=== PATIENT | male | born 1955 | race Caucasian/White ===

== ENCOUNTER 2021-09-21 08:08 | Emergency (ER) | payer OTHER ==
--- OUTSIDE RECORDS SUMMARY | 2021-09-21 08:12 | XMS REPORT | Continuity of Care Document ---
:1955 Author Organization [facility] t Address [address] [place] [address] [address]. [address] [place] [address] Care Team Providers Name Role Phone FRANCIS SAGE Attending Clinician Unavailable FRANCIS SAGE Admitting Clinician Unavailable Payers Payer Name Policy Type Policy Number Effective Date Expiration Date S lisa [facility] [id number] 2018 2020 RESOURCES 00:00:00 00:00:00 Problems This patient has no known problems. Allergies, Adverse Reactions, Alerts Allergy Allergy Status Severity Reaction(s) Onset Inactive Treating Comm ents Source Name Type Date Date Clinician NO KNOWN Allergy Active [facility] Medications This patient has no known medications. Vital Signs Vital Name Observation Time Observation Value Comments Source HEIGHT 2020-06-21 13:00:00 160 cm WEIGHT 2020-06-21 13:00:00 75.751 kg HEIGHT 2020-06-21 13:00:00 160 cm WEIGHT 2020-06-21 13:00:00 75.751 kg Procedures This patient has no known procedures. Encounters Start End Encounter Admission Attending Care Care Encounter Source Date/Time Date/Time Type Type Clinicians Facility Department ID 2020-06-21 Inpatient ER [facility] [id number] [facility] 12:27:00 [facility] Med 2020-07-25 2020-07-25 Outpatient [facility] [id number] [facility] 00:00:00 00:00:00 Results Test Description Test Time Test Comments Results Result [facility] e Comments MR, SPINE, 2020-07-25 Unlisted Reason LUMBAR, WITHOUT 12:01:00 for Exam - Click CONTRAST Yes and Enter [facility] Reason [facility] Below->YesUnlist CENTERName: becca MCNALLY Reason for TEREZA EDWARDS Exam->RADICULOPA : 1955 THY LUMBOSACRAL Sex: M FINAL REPORT MR, SPINE, LUMBAR, WITHOUT CONTRAST INDICATION: Unlisted Reason for ExamRADICULOPATHY LUMBOSACRAL COMPARISON: None TECHNIQUE: Multiplanar, multisequence MR images of the lumbar spine without contrast. FINDINGS: 5 nonrib-bearing lumbar-type vertebral bodies are present. Alignment of the lumbar spine is within normal limits. Vertebral body height is maintained. Multilevel disc space height loss is present, most conspicuous at L4-L5 and L5-F4Sicjx terminates at L1.Cauda equina demonstrates normal appearance.No acute findings in the paraspinal soft tissues. Evaluation of the individual levels demonstrates: L1/L2: No significant canal or foraminal narrowing.L2/L3: No significant canal or foraminal narrowing.L3/L4: Mild disc bulge. No significant canal or foraminal stenosis.L4/L5: Mild disc bulge. Small bilateral facet effusions. Mild right facet arthropathy. Mild right foraminal stenosis. No significant spinal canal narrowing.L5/S1: Mild disc bulge. Bilateral facet arthropathy and hypertrophy. Moderate bilateral foraminal stenosis. No significant spinal canal narrowing. IMPRESSION: Multilevel degenerative changes of the lumbar spine, most prominent at L4-L5 and L5-S1 as per above . Signed: Cheryl Salazar MDReport Verified Date/Time: 07/25/2020 12:01:58 Reading Location: [facility] [id number] Neuro Reading Room D PANEL 2020-06-22 15:40:00 Test Item Value Reference Range Interpretation Comme nts TRIGLYCERIDES (BEAKER) (test code = 540) 251 mg/dL CHOLESTEROL (CRISELDA) (test code = 631) 244 mg/dL HDL CHOLESTEROL (STEPHANIEAKER) (test code = 976) 47 mg/dL LDL CHOLESTEROL CALCULATED (CRISELDA) (test code = 633) 147 mg/dL Triglyceride Reference Range: Low Risk <150 Borderline 150-199 High Risk 200-499 Very High Risk >=500Cholesterol Reference Range: Low Risk <200 Borderline 200-239 High Risk >240HDL Cholesterol Reference Range: Low Risk >=60 High Risk <40LDL Cholesterol Reference Range: Optimal <100 Near Optimal 100-129 Borderline 130-159 High 160-189 Very High >=190 Mineral Technologist ID - VANANHOperator ID - VANANHOperator ID - VANANHOperator ID - VANANHOperator ID - VANANHOperator ID - VANANHHEMOGLOBIN [id number] 15:31:00 Test Item Value Reference Range Interpretation Comments HEMOGLOBIN A1C (CRISELDA) (test code = 5.1 % 4.3-6.1 368) Mineral Technologist ID - SWETHAANHCT, CAROTID, [id number] 12:42:00Unlisted Reason for Exam - Click Yes and Enter Reason Below->No [facility] 1955 Sex: MFINAL REPORT CT, CAROTID, ANGIO, CT, CTANGIO BRAINBRAIN CT WITHOUT CONTRAST INDICATION: Neuro deficit, acute, stroke suspected COMPARISON: CT head of the same date TECHNIQUE:Rapid acquisition spiral images were obtained between the aortic arch and the cranial vertex during intravenous contrast infusion to reconstruct axial images and angiographic 3D maximum intensity projections (MIP). 3-D volumetric reformatted images were created at a dedicated workstation. Precontrast images of the brain were also obtained. Stenosis evaluation reported in compliance with NASCET criteria. DOSE REDUCTION: Dose modulation, iterative reconstruction, and/or weight-based adjustment of the mA/kV was utilized to reduce the radiation dose to as low as reasonably achievable. FINDINGS:NECT BRAIN:No intracranial hemorrhage, midline shift or mass effect. Midline structures are normally developed. Mild chronic microvascular ischemic changes of the periventricular and subcortical white matterare present. No hydrocephalus. Orbits are within normal limits. No obstructive paranasal sinus disease. CTA BRAIN:Internal carotid arteries: Petrous, cavernous and supraclinoid portions patent. Middlecerebral arteries: Bilateral MCA M1-M2 branches demonstrate normal contrast enhancement.Anterior cerebral arteries: Bilateral AMARILYS A1-A2 branches demonstrate normal contrast enhancement.Basilar system: Normal contrast opacification of the vertebrobasilar system.Posterior cerebral arteries: Normal contrast opacification of the bilateral NETWORK STRATEGIST P1-P2 branches.Venous opacification: Major dural sinuses unrema rkable for bolus timing.Additional findings: None. CTA NECK:Common carotid arteries: There is normalcontrast opacification of the bilateral common carotid arteries.Cervical internal carotid arteries: Normal contrast opacification of the bilateral cervical internal carotid arteries without significantstenosis by NASCET criteria.Vertebral arteries: Normal contrast opacification of the bilateral cervical vertebral arteries.Arch anatomy: Conventional. Nonvascular findings:No acute findings within the neck soft tissues. IMPRESSION: No acute intracranial abnormality. Unremarkable CTA of the head and neck. Signed: Cheryl Salazar MDReport Verified Date/Time: 06/22/2020 12:42:49 Reading Location: [address] Neuro Reading Room [facility] [id number] 12:42:00Unlisted Reason for Exam - Click Yes and Enter Reason Below->No [facility] : 1955 Sex: MFINAL REPORT CT, CAROTID, ANGIO, CT, CTANGIO BRAINBRAIN CT WITHOUT CONTRAST INDICATION: Neuro deficit, acute, stroke suspected COMPARISON: CT head of the same date TECHNIQUE:Rapid acquisition spiral images were obtained between the aortic arch and the cranial vertex during intravenous contrast infusion to reconstruct axial images and angiographic 3D maximum intensity projections (MIP). 3-D volumetric reformatted images were created at a dedicated workstation. Precontrast images of the brain were also obtained. Stenosis evaluation reported in compliance with NASCET criteria. DOSE REDUCTION: Dose modulation, iterative reconstruction, and/or weight-based adjustment of the mA/kV was utilized to reduce the radiation dose to as low as reasonably achievable. FINDINGS:NECT BRAIN:No intracranial hemorrhage, midline shift or mass effect. Midline structures are normally developed. Mild chronic microvascular ischemic changes of the periventricular and subcortical white matterare present. No hydrocephalus. Orbits are within normal limits. No obstructive paranasal sinus disease. CTA BRAIN:Internal carotid arteries: Petrous, cavernous and supraclinoid portions patent. Middlecerebral arteries: Bilateral MCA M1-M2 branches demonstrate normal contrast enhancement.Anterior cerebral arteries: Bilateral AMARILYS A1-A2 branches demonstrate normal contrast enhancement.Basilar system: Normal contrast opacification of the vertebrobasilar system.Posterior cerebral arteries: Normal contrast opacification of the bilateral NETWORK STRATEGIST P1-P2 branches.Venous opacification: Major dural sinuses unrema rkable for bolus timing.Additional findings: None. CTA NECK:Common carotid arteries: There is normalcontrast opacification of the bilateral common carotid arteries.Cervical internal carotid arteries: Normal contrast opacification of the bilateral cervical internal carotid arteries without significantstenosis by NASCET criteria.Vertebral arteries: Normal contrast opacification of the bilateral cervical vertebral arteries.Arch anatomy: Conventional. Nonvascular findings:No acute findings within the neck soft tissues. IMPRESSION: No acute intracranial abnormality. Unremarkable CTA of the head and neck. Signed: Cheryl Salazarort Verified Date/Time: 06/22/2020 12:42:49 Reading Location: [facility] C0[facility] Neuro Reading Room MR, BRAIN, WITHOUT CONTRAST 2020-06-22 10:43:00Unlisted Reason for Exam - Click Yes and Enter Reason Below- >NoDeos the patient have an implantedelectronic device?->No [facility] : 1955 Sex: MFINAL REPORT MR, BRAIN, WITHOUT CONTRAST INDICATION: Altered mental status TECHNIQUE: Multiplanar, multisequence MR imaging of the brain was obtained. 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 No hemorrhagic conversion or significant mass effect. Brain parenchyma is normal in morphology. Midline structures are normally developed. No abnormal susceptibility. Scattered T2/FLAIR hyperintense foci within the periventricular and subcortical white matter are nonspecific, however, statistically represent chronic microvascular ischemic changes. No hydrocephalus. Orbits are within normal limits. No obstructive paranasal sinus disease. 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 No hemorrhagic conversion or significant mass effect. Signed: Cheryl Salazar MDReport Verified Date/Time: 06/22/2020 10:43:15 Reading Location: [address] Neuro Reading Room COMPREHENSIVE METABOLIC [id number] 14:56:00 Test Item Value Reference Range Interpretation Comments TOTAL PROTEIN 7.4 gm/dL 6.0-8.5 (BEAKER) (test code = 770) ALBUMIN (BEAKER) 4.4 g/dL 3.5-5.0 (test code = 1145) ALKALINE PHOSPHATASE 80 U/L 30-115 (BEAKER) (test code = 346) BILIRUBIN TOTAL 0.7 mg/dL 0.1-1.2 (BEAKER) (test code = 377) SODIUM (BEAKER) (test 141 meq/L 135-148 code = 381) POTASSIUM (BEAKER) 3.9 meq/L 3.6-5.5 (test code = 379) CHLORIDE (BEAKER) 106 meq/L 98-106 (test code = 382) CO2 (BEAKER) (test 19 meq/L 20-29 L code = 355) BLOOD UREA NITROGEN 10 mg/dL 10-26 (BEAKER) (test code = 354) CREATININE (BEAKER) 0.92 mg/dL 0.50-1.20 (test code = 358) GLUCOSE RANDOM 94 mg/dL 70-110 (BEAKER) (test code = 652) CALCIUM (BEAKER) 8.8 mg/dL 8.5-10.5 (test code = 697) AST (SGOT) (BEAKER) 27 U/L 5-40 (test code = 353) ALT (SGPT) (BEAKER) 36 U/L 5-50 (test code = 347) EGFR (BEAKER) (test INSUFFIC IENT CLINICAL code = 1092) DATA TO CALCULA TE ESTIMATED GFR. Mineral Technologist ID - [id number] ID - [id number] ID - [id number] ID - [id number] ID - [id number] ID - [id number] ID - [id number] ID - [id number] ID - [id number] ID - [id number] ID - [id number] ID - jonh69Cogvtkts ID - rrrx88Gkeiasee ID - [id number] ID - [id number] ID - xmch05Dhncmiap ID - tqfw21Rkplzqwm ID - [id number] ID - [id number] [id number] 14:44:00 Test Item Value Reference Range Interpretation Comments C-REACTIVE PROTEIN (BEAKER) (test 0.54 mg/dL 0.00-0.50 H code = 676) Mineral Technologist ID - [id number] 14:43:00 Test Item Value Reference Range Interpretation Comments VITAMIN B12 (BEAKER) (test code = 195 pg/mL 211-911 L 774) Mineral Technologist ID - [id number]/FREE T4 IF [id number] 14:31:00 Test Item Value Reference Range Interpretation Comments THYROID STIMULATING HORMONE 1.030 uIU/mL 0.350-5.500 (BEAKER) (test code = 772) Mineral Technologist ID - [id number]/RT-PCR (HS & REF LABS)2020-06-21 13:54:00 Test Item Value Reference Range Interpretation Comments SARS-COV2/RT-PCR (test Negative Not Detected, code = 4526217) Negative, See external report for linked test SARS-COV-2 PERFORMING [facility] (test code = [facility] - [place] [id number]) [facility] [id number] 13:43:00 Test Item Value Reference Range Interpretation Comments AMMONIA (BEAKER) (test code = 348) 45 mol/L 17-80 Mineral Technologist ID - [id number] ID - [id number] ID - [id number] ID - [id number] CBC W/PLT COUNT & AUTO [id number] 13:33:00 Test Item Value Reference Range Interpretation Comments WHITE BLOOD CELL COUNT (BEAKER) 10.0 K/ L 4.0-10.0 (test code = 775) RED BLOOD CELL COUNT (BEAKER) 4.88 M/ L 4.20-5.80 (test code = 761) HEMOGLOBIN (BEAKER) (test code = 15.9 GM/DL 13.0-16.8 410) HEMATOCRIT (BEAKER) (test code = 45.6 % 36.0-50.0 411) MEAN CORPUSCULAR VOLUME (BEAKER) 93.4 fL 82.0-99.0 (test code = 753) MEAN CORPUSCULAR HEMOGLOBIN 32.6 pg 27.0-33.0 (BEAKER) (test code = 751) MEAN CORPUSCULAR HEMOGLOBIN CONC 34.9 GM/DL 32.0-36.0 (BEAKER) (test code = 752) RED CELL DISTRIBUTION WIDTH 13.2 % 12.0-15.0 (BEAKER) (test code = 412) PLATELET COUNT (BEAKER) (test 313 K/CU MM 150-430 code = 756) MEAN PLATELET VOLUME (BEAKER) 9.6 fL 6.0-11.5 (test code = 754) NUCLEATED RED BLOOD CELLS 0 /100 WBC 0-0 (BEAKER) (test code = 413) NEUTROPHILS RELATIVE PERCENT 73 % (BEAKER) (test code = 429) LYMPHOCYTES RELATIVE PERCENT 20 % (BEAKER) (test code = 430) MONOCYTES RELATIVE PERCENT 6 % (BEAKER) (test code = 431) EOSINOPHILS RELATIVE PERCENT 1 % (BEAKER) (test code = 432) BASOPHILS RELATIVE PERCENT 1 % (BEAKER) (test code = 437) NEUTROPHILS ABSOLUTE COUNT 7.29 K/ L 1.80-8.00 (BEAKER) (test code = 670) LYMPHOCYTES ABSOLUTE COUNT 1.98 K/ L 1.48-4.50 (BEAKER) (test code = 414) MONOCYTES ABSOLUTE COUNT (BEAKER) 0.56 K/ L 0.00-1.30 (test code = 415) EOSINOPHILS ABSOLUTE COUNT 0.09 K/ L 0.00-0.50 (BEAKER) (test code = 416) BASOPHILS ABSOLUTE COUNT (BEAKER) 0.07 K/ L 0.00-0.20 (test code = 417) IMMATURE GRANULOCYTES-RELATIVE 1 % 0-0 H PERCENT (BEAKER) (test code = 7972)
[2021-09-21] MEDS ORDERED: CYCLOBENZAPRINE 10 MG TAB ONE (08:46)
[2021-09-21] MEDS ORDERED: LIDOCAINE 4% PATCH ONE (08:47)
[2021-09-21] MEDS ORDERED: HYDROCODONE/APAP 10/325 TAB ONE (08:47)
[2021-09-21] MEDS ORDERED: KETOROLAC 30 MG/ML INJ ONE (08:47)
--- NOTE | 2021-09-21 09:30 | RAD REPORT ---
EXAM DESCRIPTION: RAD - Thoracic Spine Ap/Lat - 09/21/2021 9:18 am CLINICAL HISTORY: PAIN COMPARISON: No comparisons FINDINGS: No acute fracture. Mild thoracolumbar curvature . Mild diffuse disc height loss and minima l endplate spurring. Surgical clips in the right upper quadrant. IMPRESSION: No acute osseous abnormality involving the thoracic spine.
--- NOTE | 2021-09-21 10:10 | ER ---
Nurse's Notes [facility] Name: Ricci Medina Age: 65 yrs Sex: Male : 1955 Arrival Date: 09/21/2021 Time: 08:11 Bed 24 Private MD: Diagnosis: Pain in thoracic spine Presentation: 09/21 08:21 Chief complaint: Patient states: l mid upper back pain starting a couple fo days ago. jh6 no in jury. Coronavirus screen: Vaccine status: Patient reports receiving the 2nd dose of the covid vaccine. Ebola Screen: Patient negative for fever greater than or equal to 101.5 degrees Fahrenheit, and additional compatible Ebola Virus Disease symptoms. Initial Sepsis Screen: Does the patient meet any 2 criteria? No. Patient's initial sepsis screen is negative. Does the patient have a suspected source of infection?. Risk Assessment: Do you want to hurt yourself or someone else? Patient reports no desire to harm self or others. Onset of symptoms was September 01, 2021. 08:21 Method Of Arrival: Ambulatory [facility] 08:21 Acuity: NGUYỄN 4 jh6 Triage Assessment: 08:23 General: Appears uncomfortable, Behavior is calm, cooperative. Pain: Complains of pain jh6 in left subscapular area Pain currently is 8 out of 10 on a pain scale. Quality of pain is described as burning, sharp, Pain began 2-3 days ago. Is continuous, Alleviated by nothing. Aggravated by exercise, increased activity, repositioning. Musculoskeletal: Range of motion: limiting in twisting or moving due to pain. Historical: - Allergies: 08:22 No Known Allergies; [facility] - Immunization history:: Adult Immunizations up to date. - Social history:: Smoking status: Patient denies any tobacco usage or history of. Screenin:25 Abuse screen: Denies threats or abuse. Nutritional screening: No deficits noted. 6 Tuberculosis screening: No symptoms or risk factors identified. Fall Risk Gait- Weak (10 pts.). Assessment: 08:25 General: see triage note. Neuro: No deficits noted. [facility] 09:46 Reassessment: Patient is alert, oriented x 3, equal unlabored respirations, skin jh6 warm/dry/pink. Patient states feeling better. Patient states symptoms have improved. Pain: Pain currently is 4 out of 10 on a pain scale. Neuro: No deficits noted. Vital Signs: 08:21 BP 158 / 100; Pulse 81; Resp 18; Temp 98.2(O); Pulse Ox 98% ; Weight 86.18 kg; Height 5 jh6 ft. 4 in. (162.56 cm); Pain 8/10; 09:47 BP 127 / 83; Pulse 69; Resp 18; Pulse Ox 100% ; jh6 10:31 BP 112 / 64; Pulse 72; Resp 17; Pulse Ox 100% ; Pain 1/10; jh6 08:21 Body Mass Index 32.61 (86.18 kg, 162.56 cm) 6 ED Course: 08:11 Patient arrived in ED. mr 08:14 Lona Ortega, CLEVE is Primary Nurse. jh6 08:18 Mohinder Pena NP is PHCP. pm1 08:18 Ricardo Gomez MD is Attending Physician. pm1 08:22 Triage completed. jh6 08:24 Arm band placed on right wrist. Patient placed in an exam room, on a stretcher. 6 08:26 Call light in reach. Side rails up X 1. jh6 08:26 No provider procedures requiring assistance completed. jh6 09:16 Spine Thoracic Ap/Lat XRAY In Process Unspecified. EDNM Administered Medications: 08:57 Drug: [place] (HYDROcodone-acetaminophen) 10 mg-325 mg 1 tabs Route: PO; jh6 10:32 Follow up: Response: Pain is decreased 6 08:57 Drug: Ketorolac 30 mg Route: IM; Site: left deltoid; jh6 10:32 Follow up: Response: Pain is decreased 6 08:57 Drug: Flexeril (cyclobenzaprine) 10 mg Route: PO; jh6 10:32 Follow up: Response: Pain is decreased 6 08:58 Drug: Lidoderm Patch 5 % (700 mg/patch) 1 patches Route: Topical; Site: affected area; 6 Outcome: 10:09 Discharge ordered by . pm1 10:31 Discharged to home ambulatory. jh6 10:31 Condition: improved 10:31 Discharge instructions given to patient, Instructed on discharge instructions, follow up and referral plans. Demonstrated understanding of instructions, follow-up care, medications, Prescriptions given X 4. 10:32 Patient left the ED. 6 Signatures: Dispatcher [employer] EDNM Radha Elias mr Izabellamonalisa, Mohinder, ANTISQUEAK FILLER ANTISQUEAK FILLER pm1 Shannon, Lona, RN RN jh6
--- NOTE | 2021-09-21 10:10 | EDPHYS ---
Physician Documentation [facility] Name: Ricci Medina Age: 65 yrs Sex: Male : 1955 Arrival Date: 09/21/2021 Time: 08:11 Bed 24 Private MD: ED Physician Ricardo Gomez HPI: 09/21 16:04 This 65 yrs old Male presents to ER via Ambulatory with complaints of Back Pain. pm1 16:04 The patient presents with pain that is acute. The symptoms are located in the thoracic pm1 spine. Onset: The symptoms/episode began/occurred 2 day(s) ago. The pain does not radiate. Associated signs and symptoms: Pertinent negatives: abdominal pain, chest pain, fever, coughing. The problem was sustained lifting and moving fairly heavy object preparing for 's birthday constitution party. Modifying factors: The patient symptoms are alleviated by rest, the patient symptoms are aggravated by bending, Twisting. Severity of symptoms: in the emergency department the symptoms are actually worse. The patient has experienced similar episodes in the past, a few times. The patient has not recently seen a physician. Historical: - Allergies: 08:22 No Known Allergies; jh6 - Immunization history:: Adult Immunizations up to date. - Social history:: Smoking status: Patient denies any tobacco usage or history of. ROS: 16:04 Constitutional: Negative for fever, chills, and weight loss, Cardiovascular: Negative pm1 for chest pain, palpitations, and edema, Respiratory: Negative for shortness of breath, cough, wheezing, and pleuritic chest pain, Abdomen/GI: Negative for abdominal pain, nausea, vomiting, diarrhea, and constipation. 16:04 : Negative for injury, bleeding, discharge, and swelling, MS/Extremity: Negative for injury and deformity, Skin: Negative for injury, rash, and discoloration, Neuro: Negative for headache, weakness, numbness, tingling, and seizure. 16:04 Back: Positive for pain with movement, of the thoracic area. 16:04 All other systems are negative. Exam: 16:04 Constitutional: This is a well developed, well nourished patient who is awake, alert, pm1 and in no acute distress. Head/Face: Normocephalic, atraumatic. 16:04 Chest/axilla: Normal chest wall appearance and motion. Nontender with no deformity. No lesions are appreciated. Cardiovascular: Regular rate and rhythm with a normal S1 and S2. No gallops, murmurs, or rubs. Normal PMI, no JVD. No pulse deficits. Respiratory: Lungs have equal breath sounds bilaterally, clear to auscultation and percussion. No rales, rhonchi or wheezes noted. No increased work of breathing, no retractions or nasal flaring. Back: No spinal tenderness. No costovertebral tenderness. Full range of motion. Skin: Warm, dry with normal turgor. Normal color with no rashes, no lesions, and no evidence of cellulitis. MS/ Extremity: Pulses equal, no cyanosis. Neurovascular intact. Full, normal range of motion. 16:04 Eyes: Exam is negative for acute changes, Extraocular movements: no acute changes, Conjunctiva: no acute changes, no injection. 16:04 ENT: Mouth: no acute changes, Lips: Oral mucosa: Posterior pharynx: no acute changes, Airway: Tonsils: 16:04 Neuro: Exam negative for acute changes, Orientation: is normal, Mentation: is normal, Motor: is normal, moves all fours. Vital Signs: 08:21 BP 158 / 100; Pulse 81; Resp 18; Temp 98.2(O); Pulse Ox 98% ; Weight 86.18 kg; Height 5 6 ft. 4 in. (162.56 cm); Pain 8/10; 09:47 BP 127 / 83; Pulse 69; Resp 18; Pulse Ox 100% ; jh6 10:31 BP 112 / 64; Pulse 72; Resp 17; Pulse Ox 100% ; Pain 1/10; 6 08:21 Body Mass Index 32.61 (86.18 kg, 162.56 cm) [facility] MDM: 08:19 Patient medically screened. pm1 10:08 Data reviewed: vital signs. Data interpreted: Pulse oximetry: on room air is 100 %. pm1 Interpretation: normal. 10:22 ED course: Pain is 2-3/10 from medications given in ER. pm1 03 08:31 Order name: Spine Thoracic Ap/Lat XRAY; Complete Time: 09:33 pm1 Administered Medications: 08:57 Drug: Norlina (HYDROcodone-acetaminophen) 10 mg-325 mg 1 tabs Route: PO; jh6 10:32 Follow up: Response: Pain is decreased jh6 08:57 Drug: Ketorolac 30 mg Route: IM; Site: left deltoid; jh6 10:32 Follow up: Response: Pain is decreased jh6 08:57 Drug: Flexeril (cyclobenzaprine) 10 mg Route: PO; jh6 10:32 Follow up: Response: Pain is decreased jh6 08:58 Drug: Lidoderm Patch 5 % (700 mg/patch) 1 patches Route: Topical; Site: affected area; [facility] Disposition Summary: 09/21/21 10:09 Discharge Ordered Location: Home pm1 Problem: new pm1 Symptoms: have improved pm1 Condition: Stable pm1 Diagnosis - Pain in thoracic spine pm1 Followup: pm1 - With: Emergency Department - When: As needed - Reason: Worsening of condition Followup: pm1 - With: Private Physician - When: 2 - 3 days - Reason: Recheck today's complaints, Continuance of care, Re-evaluation by your physician Discharge Instructions: - Discharge Summary Sheet pm1 - Acute Back Pain, Adult pm1 Forms: - Medication Reconciliation Form pm1 - Thank You Letter pm1 - Antibiotic Education pm1 - Prescription Opioid Use pm1 Prescriptions: - Lidoderm 5 % Topical adhesive patch,medicated - apply 1 patch by TRANSDERMAL route once daily As needed 12 hours on and 12 pm1 hours off in a 24 hour period; 10 patch; Refills: 0, Product Selection Permitted - Cyclobenzaprine 10 mg Oral Tablet - take 1 tablet by ORAL route every 8 hours As needed; 30 tablet; Refills: 0, pm1 Product Selection Permitted - Diclofenac Sodium 75 mg Oral Tablet Sustained Release - take 1 tablet by ORAL route 2 times per day; 30 tablet; Refills: 0, Product pm1 Selection Permitted - Tylenol-Codeine #3 300 mg-30 mg Oral - take 2 tablet by ORAL route every 6 hours As needed; 20 tablet; Refills: 0, pm1 Product Selection Permitted Addendum: 09/24/2021 07:12 Co-signature as Attending Physician, Ricardo Gomez MD I agree with the assessment and c [place] plan of care. Signatures: Dispatcher [employer] Ricardo Rocha MD MD cha Marinas, Patrick, SENIOR [employer] DEVELOPER SENIOR [employer] DEVELOPER pm1 Lona Ortega, RN RN jh6
[2021-09-21 10:37] VITALS: TEMP 98.2
[2021-09-21 10:38] VITALS: O2SAT 100
[2021-09-21 10:40] VITALS: BP 112/64
== END 2021-09-21 10:32 | disposition home or self-care (01) ==
LOC: ER 08:08
DX: M54.6 Pain in thoracic spine (principal)
CPT/HCPCS: 72070; 96372; 99283

== ENCOUNTER → 2024-05-11 | Day surgery (SDC) | payer OTHER ==
[2024-05-09 12:14] LABS: Absolute Basophils 0.1 K/uL (0-0.5); Absolute Eosinophils 0.4 K/uL (0-0.5); Absolute Lymphocytes (CBC) 2.4 K/uL (0.7-4.9); Absolute Monocytes 0.6 K/uL (0.1-1.3); Absolute Neutrophil 4.3 K/uL (1.8-8.0); Basophils % 0.9 % (0-1.3); Eosinophils % 5.1 % (0-4.4); Hematocrit 46.4 % (39.6-49.0); Hemoglobin 15.5 g/dL (13.6-17.9); Lymphocytes % 31.4 % (15.3-44.8); MCH 32.3 pg (27.0-35.0); MCHC 33.3 g/dL (32.0-36.0); MCV 97.1 fL (80-100); MPV 8.2 fL (7.6-11.3); Monocytes % 7.4 % (3.3-12.3); Neutrophils % 55.2 % (41.7-73.7); Platelets 254 thou/uL (152-406); RBC Red Blood Cell Count 4.78 M/uL (4.33-5.43); Red Cell Distribution Width 13.8 % (12.1-15.2)
--- NOTE | 2024-05-09 12:32 | RAD REPORT ---
EXAM: Chest Single View HISTORY: PRE-ADMIT COMPARISON: None. FINDINGS: LUNGS/PLEURA: The lungs are clear. No pleural effusions or pneumothorax. No pulmonary edema. MEDIASTINUM: The mediastinal silhouette is within normal limits. CARDIAC: The cardiac silhouette is within normal limits. UPPER ABDOMEN: No significant abnormality. BONES: No acute fracture. LINES/TUBES/OTHER: N/A IMPRESSION: No evidence of acute cardiopulmonary disease.
[~2024-05-11] MED LIST: FENTANYL CITR 100 MCG/2 ML ONE; GLYCOPYRROLATE 0.2 MG/ML SYR ONE; LIDOCAINE 2% MPF 5 ML VIAL ONE; LIDOCAINE JELLY 2% 5 ML SYRINGE TOP ONE; MEPERIDINE HCL 25 MG/ML SYR ONE; MIDAZOLAM HCL 2 MG/2 ML INJ ONE; NEOSTIGMINE 1 MG/ML -10 ML VIAL ONE; ONDANSETRON 4 MG/2 ML VIAL ONE; ROCURONIUM 50 MG/5 ML VIAL IV ONE; propofoL 200 MG/20 ML VIAL IV ONE
[2024-05-11] MEDS: Ringers Lactate 1,000 ML IV ONE (06:40)
[2024-05-11] MEDS: CEFAZOLIN SODIUM 2 GM/VIAL ONE (07:30)
[2024-05-11] MEDS: BUPIVACAINE 0.5% PF 10 ML VIAL ONE (07:57)
--- NOTE | 2024-05-11 08:38 | P.OP ---
Date of Service: 05/11/24 Preop diagnosis: Left inguinal hernia Postop diagnosis: Same Procedure performed: Repair of left inguinal hernia Surgeon: Villa Alan MD Marketing Business Analyst: Rosalinda ANGELES Estimated blood loss: Minimal Specimen: Hernia sac and cord lipoma Findings: As above Anesthesia: General Complications: None Drains: None Fluids and blood products: Nonapplicable Disposition: Recovery room Operative note: Patient brought to the OR and placed in supine position. General anesthesia began. Patient prepped and draped in usual sterile fashion. Marcaine 0.5% infiltrated locally. 15 blade used to make a 4 cm oblique incision between the pubic tubercle and the anterior iliac superior spine on the left side. Subcu tissue divided and bleeding controlled cautery. Chino's fascia identified and divided. Aponeurosis identified and mobilized inferiorly to expose the shelving edge. Aponeurosis opened through the external ring. Cord structures and genital nerve identified. Cord mobilized at the pubic tubercle. Cord skeletonized. Hernia sac and cord lipoma identified. Both structures dissected and excised and sent to pathology. The base of the hernia sac was tied off with 2-0 Prolene suture ligature and freehand tie. The base of the cord lipoma was tied off with 2-0 chromic. Marlex mesh plug was placed in the internal ring and secured with VersaTack stapler. Onlay mesh was placed in the inguinal floor secured medially to the pubic tubercle, superior to the conjoined tendon, inferior to the shelving edge and laterally to each other. Cord structures and ilioinguinal nerve placed back in anatomic location. 2-0 Prolene used to close the aponeurosis. 3-0 chromic used to close Chino's fascia. 3-0 chromic also used to close skin. Sterile dressing applied. Patient awakened and taken to recovery room in good general condition. CC: Dr. Pratt's office
[2024-05-11] MEDS: HYDROMORPHONE HCL 1 MG/ML INJ ONE ×2 (09:08→09:18)
[2024-05-11 09:38] VITALS: TEMP 97.7; O2SAT 97
[2024-05-11 09:39] VITALS: BP 111/69
[2024-05-11] MEDS: HYDROCODONE/APAP 7.5/325 MG TAB PO PRN (10:45)
[2024-05-11] MEDS: TAMSULOSIN 0.4 MG SR CAP ONE (12:34)
== END | disposition home or self-care (01) ==
LOC: OR 06:19
PROVIDERS: ATTEND Surgery
PROC: 0YQ60ZZ Repair Left Inguinal Region, Open Approach (ICD-10-PCS; principal; 2024-05-11 07:30)
DX: K40.90 Unilateral inguinal hernia, without obstruction or gangrene, not specified as recurrent (principal)
CPT/HCPCS: 93005; 85025; 80048; 36415; 88302; 71045; 49505; J2704; J2710; J2003; J2250; J3010; J1171 ×2; J2405; J7120; J2175